=== PATIENT | female | born 1960 | race Two or more races ===

== ENCOUNTER 2024-11-15 05:40 | Day surgery (SDC) | payer BC, SELFPAY ==
--- NOTE | 2024-11-13 07:00 | EKG_ITS ---
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
[2024-11-13 11:10] VITALS: BMI 33.5
[2024-11-13 11:55] LABS: Basophils # (Auto) 0.1 Thou/mm3 (0.0-0.2); Basophils % (Auto) 1 % (0-2.5); Eosinophils # (Auto) 0.2 Thou/mm3 (0.0-0.5); Eosinophils % (Auto) 3 % (0-10); Hematocrit 41.3 % (36.0-46.0); Hemoglobin 14.1 g/dL (12.0-16.0); Immature Granulocytes % (Auto) 0 % (0-0); Immature Granulocytes Auto 0.01 Thou/mm3 (0.00-0.00); Lymphocytes % (Auto) 27 % (10-50); Mean Corpuscular HGB Conc 34.1 g/dl (31.0-37.0); Mean Corpuscular Hemoglobin 31.2 pg (25.0-35.0); Mean Corpuscular Volume 91 fL (80-100); Monocytes # (Auto) 0.5 Thou/mm3 (0.0-0.8); Monocytes % (Auto) 7 % (0-12); Neutrophils # (Auto) 4.6 Thou/mm3 (1.8-7.7); Neutrophils % (Auto) 62 % (37-80); Nucleated Red Blood Cell % 0 /100 WBC (0); Platelet Count 308 Thou/mm3 (140-440); RDW Standard Deviation 40.6 fL (36.4-46.3); Red Blood Count 4.52 Miln/mm3 (4.00-5.20); White Blood Count 7.3 Thou/mm3 (3.6-11.0)
[2024-11-13 12:23] LABS: Alanine Aminotransferase 14 U/L (10-49); Albumin, Serum 4.1 gm/dL (3.4-4.8); Albumin/Globulin Ratio 1.6 (1.2-2.2); Alkaline Phosphatase 96 U/L (46-116); Anion Gap 9 (7-16); Aspartate Amino Transferase < 8 U/L (0-34); BUN/Creatinine Ratio 18 Ratio (12-20); Bilirubin,Total 0.4 mg/dL (0.3-1.2); Blood Urea Nitrogen 14 mg/dL (9-23); Carbon Dioxide 26.2 mMol/L (20.0-31.0); Chloride 109 mMol/L (98-107); Creatinine (Component) 0.8 mg/dL (0.6-1.3); Estimated Creatinine Clearance 72.9 mL/min (>60); Globulin 2.6 gm/dL (2.3-3.5); Glucose 122 mg/dL (74-106); Osmolality,Calculated 288 (275-295); Potassium 3.7 mMol/L (3.4-5.1); Sodium 144 mMol/L (136-145); Total Protein 6.7 gm/dL (5.7-8.2); eGFR > 60 See Note
[2024-11-13 12:58] LABS: Hepatitis A Antibody IgM Non Reactive (Non React); Hepatitis B Core Antibody IgM Non Reactive (Non React); Hepatitis B Surface Antigen Non Reactive (Non React); Hepatitis C Antibody Non Reactive (Non React)
[2024-11-13 16:42] LABS: HIV (1&2) Antibody Rapid Non-Reactive
[2024-11-15] VITALS (7 sets, daily range): BP systolic 108–136; BP diastolic 63–72; PULSE 58–77; RESP 12–17; TEMP 36.1–36.4; O2SAT 96–98; BMI 33.9
--- NOTE | 2024-11-15 08:02 | PD.GYNHP ---
Documentation for date of: 11/15/24 RIVET SPINNER - HPI History of Present Illness History of present illness: Ms. RODRÍGUEZ is a 64 year old female para 4 admitted for cervical conization. Patient was seen in [place] where she had a Pap smear abnormal for ASCUS with HPV. She also had a colposcopy done which resulted in TIMA-3. Patient was given the choice of both conization and hysterectomy and patient chose a cervical conization. Patient is aware of the possibility of margins positive and requirement of another surgery there after Meds Home Medications and Allergies Home Medications ?Medication ?Instructions ?Recorded ?Confirmed ?Type buspirone 15 mg tablet 15 mg PO BID 11/13/24 11/15/24 History losartan 100 mg tablet 100 mg PO DAILY 11/13/24 11/15/24 History metoprolol succinate 25 mg 25 mg PO DAILY 11/13/24 11/15/24 History tablet,extended release 24 hr Allergies Allergy/AdvReac Type Severity Reaction Status Date / Time red dye AdvReac Intermediate CHEST Verified 11/15/24 06:12 TIGHTNESS Exam - RIVET SPINNER Vital Signs Temp Pulse Resp BP Pulse Ox 97.3 F 65 14 136/72 H 96 11/15/24 06:14 11/15/24 06:14 11/15/24 06:14 11/15/24 06:14 11/15/24 06:14 Constitutional Constitutional: no acute distress Routine HEENT Exam Head: Present normocephalic and atraumatic Eye: Present EOMI and PERRL ENT: Present mucous membranes moist Routine Neck Exam Neck: Present supple and trachea midline Routine Respiratory Exam Respiratory: Present chest non-tender, lungs clear, normal breath sounds and no resp distress Routine Cardiovascular Exam Cardiovascular: Present RRR Routine Abdominal Exam Abdominal: Present soft and normoactive bowel sounds Routine Extremities Exam Extremities: Present full ROM Routine Skin Exam Skin: Present intact and dry Routine Neurological Exam Neurological: Present alert, oriented X3 and CN II-XII intact Routine Psychiatric Exam Psychiatric: Present normal affect and normal thought process RIVET SPINNER - Results Labs 11/13/24 11:32 11/13/24 11:32 Impressions Impression: 64-year-old para 4 admitted for cervical conization for TIMA-3 Background Pap HPV plus ASCUS Postmenopausal Quality Measures Quality Measures VTE prophylaxis
--- NOTE | 2024-11-15 08:45 | SUR.PHASEI ---
pt received from OR in recovery bay 1. pt asleep but responds to voice, breathing unlabored on room air. v/s stable. pt dressing peripad cdi. report received from Lee WEAVER and Dr. Vo.
--- NOTE | 2024-11-15 09:20 | SUR.PHASEII ---
pt able to tolerate oral fluids without difficulty swallowing or nausea/vomiting.
--- NOTE | 2024-11-15 09:26 | PD.GYNPROC ---
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 General anesthesia was deemed to be adequate. A time-out was performed to confirm correct patient and correct procedure. The patient was then positioned on the operating room in the dorsolithotomy position. A bimanual examination was performed and the uterus was noted to be small, anteverted in size yet mobile. The cervix was visualized with the aid of a Torsten. We performed endocervical currettage. With christa spann. Local anesthesia with dilute Lidocaine with epinephrine was injected circumferentially around the cervix to aid in hemostasis. Utilizing 0 Vicryl we suture ligated the cervix at 3 and 9 o'clock positions to aid in decreased bleeding to ligate the cervical branch of the uterine arteries. Once the cervix was visualized to be pale, with a scalpel were able to circumferentially remove a cone specimen of the cervix, again prior to excising that cone, we placed a Hegar dilator to protect our margins. Once the cone specimen was removed. Minimal amount of bleeding was noted. We controlled that with ball electrocautery and munsol solution. We then deemed the procedure complete. Hemostasis was obtained. We removed the speculum as well as the [place]. Sponge, lap and instrument counts were correct x2. The patient was transferred to the recovery room in stable condition Estimated blood loss (ml): 5 Surgical staff Operation Date: 11/15/24 07:30 Case Staff Anesthesiologist: Baldomero Vo Diagnosis Problem List Completed Was Problem List Reviewed/Reconciled?: Yes
--- NOTE | 2024-11-15 09:50 | SUR.PHASEII ---
pt awake and alert, breathing unlabored on room air. v/s stable. pt dressing periapd cdi. pt able to ambulate to wheelchair with steady gait. d/c instructions given with daughter Raven in room, all questions answered. pt d/c via wheelchair with all belongings.
== END 2024-11-15 09:50 | disposition home or self-care (01) ==
PROVIDERS: Anesthesiology; PCP Family Medicine; Referring Provider Student in an Organized Health Care Education/Training Program; Visit Provider Student in an Organized Health Care Education/Training Program
PROC: 0UBC7ZZ Excision of Cervix, Via Natural or Artificial Opening (ICD-10-PCS; CPT 57520; principal; 2024-11-15 07:30)
DX: R87.810 Cervical high risk human papillomavirus (HPV) DNA test positive (principal); Z78.0 Asymptomatic menopausal state; Z01.810 Encounter for preprocedural cardiovascular examination
CPT/HCPCS: 57522; 36415; 80053; 80074; 85025; 86703; 86850; 86900; 86901; 93005; A4217; A4649; J0690; J1100; J2250; J2405; J2704; J3010; J3490; J2598